=== PATIENT | male | born 1950 | race Hispanic/Latino ===

== ENCOUNTER 2021-11-02 12:45 | Emergency (ER) | payer MEDICARE ==
[2021-11-02 12:54] VITALS: BP 144/76
--- NOTE | 2021-11-02 14:26 | XRay Report ---
CHEST 1 VIEW 11/02/2021 2:03 PM INDICATION / CLINICAL INFORMATION: Medical Clearance Psych. COMPARISON: None available. FINDINGS: SUPPORT DEVICES: None. HEART / MEDIASTINUM: No significant abnormality. LUNGS / PLEURA: No significant pulmonary or pleural abnormality. No pneumothorax. ADDITIONAL FINDINGS: No significant additional findings. IMPRESSION: 1. No acute findings. Signer Name: Sharan Mcmahan MD Signed: 11/02/2021 2:21 PM Workstation Name: [id number]
[2021-11-02 14:36] LABS: Basophils # (Auto) 0.1 K/mm3 (0.0-0.1); Basophils % (Auto) 0.6 % (0.0-1.8); Eosinophils # (Auto) 0.2 K/mm3 (0.0-0.4); Eosinophils % (Auto) 2.4 % (0.0-4.3); Hematocrit 41.2 % (35.5-45.6); Hemoglobin 13.3 gm/dl (11.8-15.2); Lymphocytes # (Auto) 1.8 K/mm3 (1.2-5.4); Lymphocytes % (Auto) 16.8 % (13.4-35.0); Mean Corpuscular HGB Conc 32 % (32-34); Mean Corpuscular Volume 81 fl (84-94); Monocytes % (Auto) 9.9 % (0.0-7.3); Platelet Count 272 K/mm3 (140-440); Red Cell Distribution Width 17.7 % (13.2-15.2)
[2021-11-02 14:53] LABS: Calcium 9.6 mg/dL (8.4-10.2)
[2021-11-02 16:31] LABS: Amphetamine Screen,Urine Negative; Benzodiazepines Screen,Urine Negative; Cannabinoid Screen,Urine Negative; Cocaine Screen,Urine Negative; Methadone Screen,Urine Negative; Opiate Screen,Urine Negative
[2021-11-02 16:42] LABS: Bilirubin,Urine NEG (Negative); Blood,Urine NEG (Negative); Color,Urine Yellow (Yellow); Mucus,Urine FEW /HPF; Protein,Urine <15 mg/dL mg/dL (Negative); Urobilinogen,Urine < 2.0 mg/dL (<2.0)
--- NOTE | 2021-11-02 18:41 | Emergency Department Report ---
ED Fall HPI - General Chief Complaint: Fall Stated Complaint: FALL/NEG LOC Time Seen by Provider: 11/02/21 12:57 Source: patient, EMS Mode of arrival: Ambulatory - History of Present Illness Initial Comments: PATIENT WENT FOR A WALK FROM ALF AND [facility] FOUND HIM IN [place] pt denies any falls head injury , he says he is originally from [place] and doesn;t want to stay here -: Gradual, days(s) Fall From: standing Place Fall Occurred: retirement/SNF Loss of Consciousness: none Prolonged Down Time?: no - Related Data Home Medications Medication Instructions Recorded Confirmed Last Taken Mirtazapine 7.5 mg PO HS 07/16/21 07/16/21 Unknown Previous Rx's Medication Instructions Recorded Last Taken Type ARIPiprazole 5 mg PO QDAY 30 Days #30 tablet 07/23/21 Unknown Rx Ferrous Sulfate [Feosol 325 MG tab] 325 mg PO DAILY tablet 07/23/21 Unknown Rx Melatonin [Melatonin 5MG TAB] 5 mg PO QHS PRN 30 Days #30 tablet 07/23/21 Unknown Rx Mirtazapine [Remeron 15mg TAB] 7.5 mg PO QHS 30 Days #15 tablet 07/23/21 Unknown Rx Sertraline [Zoloft] 25 mg PO QDAY 30 Days #30 tablet 07/23/21 Unknown Rx traZODone [Desyrel] 100 mg PO QHS 30 Days #30 tablet 07/23/21 Unknown Rx Allergies Allergy/AdvReac Type Severity Reaction Status Date / Time No Known Drug Allergies Allergy Unknown Verified 07/16/21 00:43 ED Review of Systems ROS: Stated complaint: FALL/NEG LOC Other details as noted in HPI Constitutional: denies: chills, fever Eyes: denies: eye pain, eye discharge, vision change ENT: denies: ear pain, throat pain Respiratory: denies: cough, shortness of breath, wheezing Cardiovascular: denies: chest pain, palpitations Endocrine: no symptoms reported Gastrointestinal: denies: abdominal pain, nausea, diarrhea Genitourinary: denies: urgency, dysuria Musculoskeletal: denies: back pain, joint swelling, arthralgia Skin: denies: rash, lesions Neurological: denies: headache, weakness, paresthesias Psychiatric: denies: anxiety, depression Hematological/Lymphatic: denies: easy bleeding, easy bruising ED Past Medical Hx - Past Medical History Previous Medical History?: Yes Hx Hypertension: No Hx CVA: No Hx Renal Disease: Yes (HAZEL) Hx Seizures: No Hx Dementia: Yes - Surgical History Past Surgical History?: No - Social History Smoking Status: Never Smoker Substance Use Type: None - Medications Home Medications: Home Medications Medication Instructions Recorded Confirmed Last Taken Type Mirtazapine 7.5 mg PO HS 07/16/21 07/16/21 Unknown History ARIPiprazole 5 mg PO QDAY 30 Days #30 tablet 07/23/21 Unknown Rx Ferrous Sulfate [Feosol 325 MG tab] 325 mg PO DAILY tablet 07/23/21 Unknown Rx Melatonin [Melatonin 5MG TAB] 5 mg PO QHS PRN 30 Days #30 tablet 07/23/21 Unknown Rx Mirtazapine [Remeron 15mg TAB] 7.5 mg PO QHS 30 Days #15 tablet 07/23/21 Unknown Rx Sertraline [Zoloft] 25 mg PO QDAY 30 Days #30 tablet 07/23/21 Unknown Rx traZODone [Desyrel] 100 mg PO QHS 30 Days #30 tablet 07/23/21 Unknown Rx ED Physical Exam - General Limitations: Altered Mental Status General appearance: alert, obese - Head Head exam: Present: atraumatic, normocephalic - Eye Eye exam: Present: normal appearance - ENT ENT exam: Present: mucous membranes moist - Neck Neck exam: Present: normal inspection - Respiratory Respiratory exam: Present: normal lung sounds bilaterally. Absent: respiratory distress - Cardiovascular Cardiovascular Exam: Present: regular rate, normal rhythm. Absent: systolic murmur, diastolic murmur, rubs, gallop - GI/Abdominal GI/Abdominal exam: Present: soft, normal bowel sounds - Rectal Rectal exam: Present: deferred - Extremities Exam Extremities exam: Present: normal inspection - Back Exam Back exam: Present: normal inspection - Neurological Exam Neurological exam: Present: alert, other (confused baseline ) - Psychiatric Psychiatric exam: Present: anxious - Skin Skin exam: Present: warm, dry, intact, normal color. Absent: rash ED Course Vital Signs 11/02/21 11/02/21 12:51 12:59 Pulse Rate 86 Respiratory 16 Rate Blood Pressure 144/76 [Left] O2 Sat by Pulse 97 100 Oximetry ED Medical Decision Making - Lab Data Result diagrams: 11/02/21 13:55 11/02/21 13:55 Critical care attestation.: If time is entered above; I have spent that time in minutes in the direct care of this critically ill patient, excluding procedure time. ED Disposition Clinical Impression: Dementia, Schizophrenia, Vascular dementia Disposition: 03 [facility] Is pt being admited?: No Does the pt Need Aspirin: No Condition: Stable Instructions: Schizophrenia, Supporting Someone With Schizophrenia Referrals: KISHAN LONDON MD [Primary Care Provider] - 3-5 Days
== END 2021-11-03 01:23 ==
LOC: ED 12:45
DX: F03.90 Unspecified dementia, unspecified severity, without behavioral disturbance, psychotic disturbance, mood disturbance, and anxiety (principal); F20.9 Schizophrenia, unspecified; F01.50 Vascular dementia, unspecified severity, without behavioral disturbance, psychotic disturbance, mood disturbance, and anxiety
CPT/HCPCS: 36415; 71045; 80048; 80307; 80320; 81001; 85025; 99284; G0480

== ENCOUNTER 2022-03-12 10:11 | Emergency (ER) | payer MEDICARE ==
--- NOTE | 2022-03-12 14:51 | Emergency Department Report ---
ED General Adult HPI - General Chief complaint: Altered Mental Status Stated complaint: DEMENTIA Time Seen by Provider: 03/12/22 11:05 Source: patient Mode of arrival: Ambulatory Limitations: No Limitations - History of Present Illness Initial comments: Patient is a 71-year-old male who presents with being found out in the street. He is not having any pain he is aware that he is in the hospital he states that he has dementia and that he is often brought into the emergency department. He has been here before previously he is not having any delirium any suicidal ideation or any abnormal vital signs. - Related Data Home Medications Medication Instructions Recorded Confirmed Last Taken Mirtazapine 7.5 mg PO HS 07/16/21 07/16/21 Unknown Previous Rx's Medication Instructions Recorded Last Taken Type ARIPiprazole 5 mg PO QDAY 30 Days #30 tablet 07/23/21 Unknown Rx Ferrous Sulfate [Feosol 325 MG tab] 325 mg PO DAILY tablet 07/23/21 Unknown Rx Melatonin [Melatonin 5MG TAB] 5 mg PO QHS PRN 30 Days #30 tablet 07/23/21 Unknown Rx Mirtazapine [Remeron 15mg TAB] 7.5 mg PO QHS 30 Days #15 tablet 07/23/21 Unknown Rx Sertraline [Zoloft] 25 mg PO QDAY 30 Days #30 tablet 07/23/21 Unknown Rx traZODone [Desyrel] 100 mg PO QHS 30 Days #30 tablet 07/23/21 Unknown Rx Allergies Allergy/AdvReac Type Severity Reaction Status Date / Time No Known Drug Allergies Allergy Unknown Verified 07/16/21 00:43 ED Review of Systems ROS: Stated complaint: DEMENTIA Other details as noted in HPI Constitutional: denies: chills, fever Eyes: denies: eye pain, eye discharge, vision change ENT: denies: ear pain, throat pain Respiratory: denies: cough, shortness of breath, wheezing Cardiovascular: denies: chest pain, palpitations Endocrine: no symptoms reported Gastrointestinal: denies: abdominal pain, nausea, diarrhea Genitourinary: denies: urgency, dysuria Musculoskeletal: denies: back pain, joint swelling, arthralgia Skin: denies: rash, lesions Neurological: as per HPI. denies: headache, weakness, paresthesias Psychiatric: denies: anxiety, depression Hematological/Lymphatic: denies: easy bleeding, easy bruising ED Past Medical Hx - Past Medical History Hx Hypertension: No Hx CVA: No Hx Renal Disease: Yes (HAZEL) Hx Seizures: No Hx Dementia: Yes - Social History Smoking Status: Never Smoker - Medications Home Medications: Home Medications Medication Instructions Recorded Confirmed Last Taken Type Mirtazapine 7.5 mg PO HS 07/16/21 07/16/21 Unknown History ARIPiprazole 5 mg PO QDAY 30 Days #30 tablet 07/23/21 Unknown Rx Ferrous Sulfate [Feosol 325 MG tab] 325 mg PO DAILY tablet 07/23/21 Unknown Rx Melatonin [Melatonin 5MG TAB] 5 mg PO QHS PRN 30 Days #30 tablet 07/23/21 Unknown Rx Mirtazapine [Remeron 15mg TAB] 7.5 mg PO QHS 30 Days #15 tablet 07/23/21 Unknown Rx Sertraline [Zoloft] 25 mg PO QDAY 30 Days #30 tablet 07/23/21 Unknown Rx traZODone [Desyrel] 100 mg PO QHS 30 Days #30 tablet 07/23/21 Unknown Rx ED Physical Exam - General Limitations: No Limitations General appearance: alert, in no apparent distress - Head Head exam: Present: atraumatic, normocephalic - Eye Eye exam: Present: normal appearance - ENT ENT exam: Present: mucous membranes moist - Neck Neck exam: Present: normal inspection - Respiratory Respiratory exam: Present: normal lung sounds bilaterally. Absent: respiratory distress - Cardiovascular Cardiovascular Exam: Present: regular rate, normal rhythm. Absent: systolic murmur, diastolic murmur, rubs, gallop - GI/Abdominal GI/Abdominal exam: Present: soft, normal bowel sounds - Rectal Rectal exam: Present: deferred - Extremities Exam Extremities exam: Present: normal inspection - Back Exam Back exam: Present: normal inspection - Neurological Exam Neurological exam: Present: alert, oriented X3 - Psychiatric Psychiatric exam: Present: normal affect, normal mood - Skin Skin exam: Present: warm, dry, intact, normal color. Absent: rash ED Course Vital Signs 03/12/22 03/12/22 10:23 12:23 Temperature 97.7 F Pulse Rate 100 H Respiratory 16 Rate Blood Pressure 139/90 O2 Sat by Pulse 92 99 Oximetry ED Medical Decision Making - Medical Decision Making CDX: Dementia DDx: Homelessness, social issue I will discharge the patient and have social work arranged discharge. Critical care attestation.: If time is entered above; I have spent that time in minutes in the direct care of this critically ill patient, excluding procedure time. ED Disposition Clinical Impression: Social problem Vascular dementia Qualifiers: Dementia behavioral disturbance: without behavioral disturbance Qualified Code(s): F01.50 - Vascular dementia without behavioral disturbance Disposition: 01 HOME / SELF CARE / HOMELESS Is pt being admited?: No Does the pt Need Aspirin: No Condition: Stable Instructions: Vascular Dementia, Dementia, [id number]
[2022-03-14 03:16] VITALS: BP 127/87
== END 2022-03-13 22:30 | disposition home or self-care (01) ==
LOC: ED 10:11
DX: F01.50 Vascular dementia, unspecified severity, without behavioral disturbance, psychotic disturbance, mood disturbance, and anxiety (principal); Z64.4 Discord with counselors; Z79.899 Other long term (current) drug therapy
CPT/HCPCS: 99282